=== PATIENT | female | born 1955 | race Two or more races ===

== ENCOUNTER 2020-11-26 14:35 | Emergency (ER) | payer SELFPAY ==
[~2020-11-26] VITALS: Ht 154.9 cm; Wt 94.3 kg
[2020-11-26 18:52] VITALS: BP 158/89
== END 2020-11-26 21:09 | disposition home or self-care (01) ==
LOC: EDBD 14:35 → ER 14:35
DX: S83.91XA Sprain of unspecified site of right knee, initial encounter (principal); S39.012A Strain of muscle, fascia and tendon of lower back, initial encounter; S80.211A Abrasion, right knee, initial encounter; E11.9 Type 2 diabetes mellitus without complications; I10 Essential (primary) hypertension; W19.XXXA Unspecified fall, initial encounter; Y93.9 Activity, unspecified; Y92.89 Other specified places as the place of occurrence of the external cause; Y99.8 Other external cause status
CPT/HCPCS: 29505; 72100; 73562